=== PATIENT | male | born 1970 | race Caucasian/White ===

== ENCOUNTER → 2017-05-14 | Outpatient (CLI) | payer OTHER ==
[~2017-05-14] MED LIST: ACETAMINOPHEN PO; AVELOX400 MG PO; BACTRIM DS TABL1 TA2 PO; BACTRIM DS TABL1 TAB PO; CIPRO PO; NEURONTIN800 MG PO; NO MEDICATIONS; OYSTER CALCIUM500 MG PO; PERCOCET5/325 PO; VICODIN 5/500 T1 TAB PO; VICODIN PO; VOLTAREN75 MG PO; ZESTRIL5 MG PO; ZYVOX PO; ZYVOX600 MG PO
--- NOTE | ~2017-05-14 | US5 ---
[facility] A Service of [facility] / [facility] RADIOLOGY TEXT RESULTS PATIENT: YANICK SEGAL LOCATION: [facility] : 68 UNIT #: [id number] AGE: [address]: Wilfredo Meade MD SEX: M ORDER DR: [id number] [facility] [address] [place], [place] [address] [id number] O MR#: [id number] Acc #: [id number] NAME: YANICK SEGAL : 1970 SEX: M STUDY DATE/TIME: 05/14/2017 10:38 UNIT: [facility] ROOM: STUDY DESCRIPTION: US Abdominal Complete Attending Physician: Wilfredo Meade III, M.D. Referring Physician: Wilfredo Meade III, M.D. Ordering Physician: Wilfredo Meade III, M.D. Primary Care Physician: Lazaro Rodriguez M.D. MEDICAL IMAGING REPORT This report is preliminary unless electronic signature is present EXAM Abdominal ultrasound complete, 05/14/2017. HISTORY Hepatitis C. Observation for hepatocellular carcinoma and cirrhosis. FINDINGS The liver demonstrates coarsened echotexture, but no cystic or solid mass lesions are seen in the liver. The intra and extrahepatic bile ducts are not dilated. The gallbladder demonstrates no evidence of cholelithiasis, wall thickening or pericholecystic fluid. The common duct measures 3 mm. The pancreas is normal. The spleen measures 11.6 cm in greatest diameter. The visualized portions of the abdominal aorta and inferior vena cava are within normal limits. IMPRESSION Coarsened liver echotexture. No cystic or solid mass lesions were seen within the liver. Otherwise negative abdominal ultrasound. Dictated by... Prosper Bruce M.D. THIS IS AN ELECTRONICALLY VERIFIED REPORT Prosper Bruce M.D. at 05/19/2017 12:02 PM KRT/lise TD: 05/15/2017 11:27 JOB #: [id number] MEDICAL IMAGING REPORT Page 1 of 1 COPY
== END | disposition home or self-care (01) ==
LOC: CGUS 09:59
DX: B18.2 Chronic viral hepatitis C (principal)
CPT/HCPCS: 76700